=== PATIENT | male | born 1995 | race Caucasian/White ===

== ENCOUNTER 2016-06-20 10:55 | Emergency (ER) | payer MEDICAID ==
[2016-06-20 11:00] VITALS: RESP 16; TEMP 97.7
--- NOTE | 2016-06-20 12:08 | EDPHY ---
H & P Time Seen by Provider: 06/20/16 10:58 HPI/ROS: CHIEF COMPLAINT: left armpit pain HISTORY OF PRESENT ILLNESS: 21-year-old otherwise healthy male presents to the emergency department with an abscess to his left axilla. Patient reports he 1st noted this 2 days ago and has progressively gotten worse. No fevers or chills, no numbness or tingling in his arm. He denies other complaints. Patient is not immunocompromised. Smoking Status: Former smoker Physical Exam: GEN: Awake, alert, oriented, no acute distress RESP: nl resp effort MSK: Normal appearing SKIN: 2 cm x 2 cm area to left axilla of raised, erythematous, fluctuance with pustule head in center Constitutional: Initial Vital Signs Temperature (C) 36.5 C 06/20/16 10:58 Heart Rate 59 L 06/20/16 10:58 Respiratory Rate 16 06/20/16 10:58 Blood Pressure 115/59 L 06/20/16 10:58 O2 Sat (%) 97 06/20/16 10:58 O2 Delivery Mode Room Air Allergies/Adverse Reactions: No Known Allergies Allergy (Verified 06/20/16 10:57) Home Medications: Medication Instructions Recorded Hydrocodone/APAP 5/325 [Donie 1 tab PO Q4H PRN #7 tab 06/20/16 5/325] MDM/Departure - MDM Procedures: Procedure: Incision and Drainage abscess. The patient's abscess was located on the left axilla. Risks, benefits, alternatives discussed with the patient and consent obtained. The area was prepped and draped in sterile fashion. The patient received local anesthesia with 1% lidocaine with epinephrine. The abscess was incised with a #11 blade and purulent drainage was expressed. The patient tolerated the procedure well. The procedure was performed by myself. - Depart Disposition: Home, Routine, Self-Care Clinical Impression: Abscess of left axilla Condition: Good Instructions: Incision and Drainage (ED) Additional Instructions: Warm compresses to your left axilla 5 times a day for 5 minutes. Return to the emergency department for worsening symptoms. Take 600 mg of ibuprofen every 8 hours with food for 3-5 days, take Donie for severe pain. Prescriptions: Hydrocodone/APAP 5/325 [Donie 5/325] 1 tab PO Q4H PRN #7 tab PRN Reason: Pain, Moderate
[2016-06-20] MEDS ORDERED: IBUPROFEN 600 MG TAB PO ONE (12:17)
[2016-06-20 12:20] VITALS: BP 119/60; PULSE 75; O2SAT 95
== END 2016-06-20 12:20 | disposition home or self-care (01) ==
PROC: 0J9F0ZZ Drainage of Left Upper Arm Subcutaneous Tissue and Fascia, Open Approach (ICD-10-PCS; principal; 2016-06-20)
DX: L02.412 Cutaneous abscess of left axilla (principal); Z87.891 Personal history of nicotine dependence

== ENCOUNTER 2017-01-28 09:13 | Emergency (ER) | payer SELFPAY ==
[2017-01-28 09:22] VITALS: TEMP 98.1; O2SAT 98
[2017-01-28] MEDS ORDERED: predniSONE 20 MG TAB PO ONE (11:03)
[2017-01-28] MEDS ORDERED: diphenhydrAMINE 25 MG CAP PO ONE (11:03)
[2017-01-28] MEDS ORDERED: AMOXICILLIN/CLAVULANATE POT 875/125 MG TAB PO ONE (11:04)
--- NOTE | 2017-01-28 11:12 | EDPHY ---
H & P Smoking Status: Former smoker Time Seen by Provider: 01/28/17 11:05 HPI/ROS: HPI: This is a 21-year-old male who presents with Chief Complaint: Rash Location: Arms torso groin neck Quality: Rash Duration: 1-2 days Signs and Symptoms: + pruritus, no fever, no sore throat, no oral lesions, no petechiae, no nausea vomiting, no neck stiffness, + mild redness, no discharge Timing: Sudden Severity: [id number] Context: Patient was incarcerated 3 days ago and spent the night in [facility]. The next day he woke up with a rash between his fingers and in his groin that has spread up his arms and onto his torso. Yesterday he noted some mild redness and puffiness around his right eye. Denies any visual changes/ocular pain/ ocular discharge. Modifying Factors: Has not tried any [id number] medications Comment: ROS: Constitutional: No fever, no chills, no weight loss Eyes: No blurred vision Respiratory: No shortness of breath, no cough Cardiovascular: No chest pain Gastrointestinal: No nausea, no vomiting no diarrhea Genitourinary: No dysuria Extremities: No myalgias Neurologic: No weakness, no numbness Skin: No rashes Hematologic: No bruising, no bleeding MEDICAL/SURGICAL HISTORY: Generally healthy. Denies any surgical history. (Ally Woo) Social History: Was incarcerated. Is scheduled to be at his employer today at 2:00 p.m. (Ally Woo) Physical Exam: CONSTITUTIONAL: Well-appearing adult white male, for personal hygiene, awake and alert, no obvious distress HEENT: Atraumatic and normocephalic, mild right periorbital inflammation and mild redness. No stye. Conjunctiva clear. PERRL, EOMI. Tympanic membranes clear. Oropharynx clear, no exudate and moist pink mucosa. Airway patent. No lymphadenopathy. No meningismus. Cardiovascular: Normal S1/S2, regular rate, regular rhythm, without murmur rub or gallop. PULMONARY/CHEST: Symmetrical and nontender. Clear to auscultation bilaterally Good air movement. No accessory muscle usage. ABDOMEN: Soft, nondistended, nontender, no rebound, no guarding, no peritoneal signs, no masses or organomegaly. No CVAT. EXTREMITIES: 2/2 pulses, no deformities, no clubbing, no cyanosis or edema. NEUROLOGICAL: no focal neuro deficits. GCS 15. SKIN: Warm and dry, raised pinpoint macular lesions linear pattern in between the finger webs of both hands; bilateral wrists; bilateral antecubital fossa does; the latter axilla; neck crease; torso; right groin noted. Good capillary refill. (Ally Woo) Constitutional: Initial Vital Signs Temperature (C) 36.7 C 01/28/17 09:20 Heart Rate 88 01/28/17 09:20 Respiratory Rate 16 01/28/17 09:20 Blood Pressure 112/76 01/28/17 09:20 O2 Sat (%) 98 01/28/17 09:20 O2 Delivery Mode Room Air Allergies/Adverse Reactions: No Known Allergies Allergy (Verified 01/28/17 09:19) Home Medications: Medication Instructions Recorded Amoxicillin/Clavulanate Pot 875 mg PO BID #14 tab 01/28/17 [Augmentin 875 MG TAB (*)] Permethrin 5% [Elimite 5%] 60 gm TP ONCE #60 cream 01/28/17 predniSONE [predniSONE TAPER] 10 mg PO DAILY #21 ea 01/28/17 Medical Decision Making ED Course/Re-evaluation: Oral medications given; Augmentin, Benadryl, prednisone Will treat scabies as well as early periorbital cellulitis No signs of systemic infection. (Ally Woo) The patient was evaluated and managed by the physician primary teaching assistant. I have reviewed this chart and I agree with the findings and plan of care as documented , as indicated by my signature. I am the secondary supervising physician. ( Maura Avila) Differential Diagnosis: Differential includes but is not limited to scabies, bedbugs, impetigo, atopic dermatitis, dermatitis herpetiformis, abscess. (Ally Woo) - Data Points Medications Given: Discontinued Medications Amoxicillin/Clavulanate Potassium (Augmentin 875mg) 875 mg PO EDNOW ONE PRN Reason: Protocol Stop: 01/28/17 11:05 Last Admin: 01/28/17 11:12 Dose: 875 mg Diphenhydramine HCl (Benadryl) 50 mg PO EDNOW ONE Stop: 01/28/17 11:04 Last Admin: 01/28/17 11:11 Dose: 50 mg Prednisone (Prednisone) 60 mg PO EDNOW ONE Stop: 01/28/17 11:04 Last Admin: 01/28/17 11:12 Dose: 60 mg Departure - Departure Disposition: Home, Routine, Self-Care Clinical Impression: Periorbital cellulitis of right eye, Scabies, History of incarceration Condition: Good Instructions: Scabies (ED), Periorbital Cellulitis in Adults (ED) Additional Instructions: TAKE ALL MEDICATIONS PRESCRIBED. Your contaminated for the next 24-48 hours. Wash all bedding, linens, and clothes in hot water Referrals: NONE *PRIMARY CARE P,. [Primary Care Provider] - As per Instructions [facility],. [Clinic] - 5-7 days, if not improved Stand Alone Forms: Work Excuse Prescriptions: Amoxicillin/Clavulanate Pot [Augmentin 875 MG TAB (*)] 875 mg PO BID #14 tab Permethrin 5% [Elimite 5%] 60 gm TP ONCE #60 cream predniSONE [predniSONE TAPER] 10 mg PO DAILY #21 ea
[2017-01-28 11:27] VITALS: BP 116/73; PULSE 78; RESP 15
== END 2017-01-28 11:26 | disposition home or self-care (01) ==
DX: L03.213 Periorbital cellulitis (principal); B86 Scabies; Z87.891 Personal history of nicotine dependence

== ENCOUNTER 2018-03-21 16:20 | Emergency (ER) | payer SELFPAY ==
[2018-03-21 16:33] VITALS: BP 117/62
[2018-03-21] MEDS ORDERED: LORazepam 0.5 MG TAB PO ONE (16:40)
[2018-03-21] MEDS ORDERED: AZITHROMYCIN 250 MG TAB PO ONE (16:42)
--- NOTE | 2018-03-21 16:43 | EDPHY ---
H & P Stated Complaint: dysuria Source: Patient Exam Limitations: No limitations - Personal History Current Tetanus/Diphtheria Vaccine: Unsure Current Tetanus Diphtheria and Acellular Pertussis (TDAP): Unsure Tetanus Vaccine Date: < 10 years - Medical/Surgical History Hx Asthma: No Hx Chronic Respiratory Disease: No Hx Diabetes: No Hx Cardiac Disease: No Hx Renal Disease: No Hx Cirrhosis: No Hx Alcoholism: No Hx HIV/AIDS: No Hx Splenectomy or Spleen Trauma: No Other PMH: right wrist surgery, - Social History Smoking Status: Current every day smoker Time Seen by Provider: 03/21/18 16:39 HPI/ROS: HPI: This is a 22-year-old male who presents with Chief Complaint: Penile discharge and burning with urination Location: Quality: Dysuria and discharge Duration: Several days Signs and Symptoms: no fever, no nausea, no vomiting, no hematemesis, no blood in stool, no abdominal bloating, no diarrhea, no back pain, no urinary symptoms , no testicular/groin pain, no indigestion, no chest pain, no shortness of breath Timing: Sudden onset Severity: Mild Context: Patient reports that he had unprotected sexual intercourse approximately 7-10 days ago, presents with several day history of burning with urination and greenish yellow penile discharge. He denies any testicular or groin swelling or pain. Eating and drinking normally. Denies fever, back pain , blood in urine, penile lesions or sores. Modifying Factors: None Comment: ROS: A comprehensive 10 system review of systems is otherwise negative aside from elements mentioned in the history of present illness. MEDICAL/SURGICAL/SOCIAL HISTORY: Medical history: Generally healthy. Does not take any regular medications. Surgical history: Right wrist surgery Social history: Smoker. Family history noncontributory. CONSTITUTIONAL: Slightly anxious young adult white male, awake and alert, no obvious distress HEENT: Atraumatic and normocephalic, PERRL, EOMI. Nares patent; no rhinorrhea; no nasal mucosal edema. Tympanic membranes clear. Oropharynx clear, no exudate and moist pink mucosa. Airway patent. No lymphadenopathy. No meningismus. Cardiovascular: Normal S1/S2, regular rate, regular rhythm, without murmur rub or gallop. PULMONARY/CHEST: Symmetrical and nontender. Clear to auscultation bilaterally. Good air movement. No accessory muscle usage. ABDOMEN: Soft, nondistended, nontender, no rebound, no guarding, no peritoneal signs, no masses or organomegaly. No CVAT. Male : circumcised penis, bilateral descended testes, no testicular swelling, no testicular masses, + yellowish penile discharge, no lesions, negative Prehn' s sign. EXTREMITIES: 2/2 pulses, strength 5/5, no deformities, no clubbing, no cyanosis or edema. NEUROLOGICAL: no focal neuro deficits. GCS 15. SKIN: Warm and dry, no erythema. no rash. Good capillary refill. (Ally Woo) Constitutional: Initial Vital Signs Temperature (C) 37 C 03/21/18 16:30 Heart Rate 70 03/21/18 16:30 Respiratory Rate 16 03/21/18 16:30 Blood Pressure 117/62 03/21/18 16:30 O2 Sat (%) 96 03/21/18 16:30 O2 Delivery Mode Room Air Allergies/Adverse Reactions: No Known Allergies Allergy (Verified 03/21/18 16:30) Medical Decision Making ED Course/Re-evaluation: Urinalysis and urine GC ordered No testicular pain or swelling and I do not believe that patient has testicular torsion and needs testicular ultrasound No lesions to indicate herpes. No signs of Gisela's gangrene. Urinalysis does not show any Trichomonas. Given IM Rocephin 250 mg and p.o. Azithromycin 1 gram for GC prophylaxis This patient was seen under the supervision of my secondary supervising physician. I evaluated care for this patient independently. Discussed this patient with Dr. Gordon. (Ally Woo) Differential Diagnosis: Differential diagnosis includes but is not limited to gonorrhea, chlamydia, Trichomonas, herpes, epididymitis, orchitis. (Ally Woo) - Data Points Medications Given: Discontinued Medications Azithromycin (Zithromax) 1,000 mg PO EDNOW ONE PRN Reason: Protocol Stop: 03/21/18 16:43 Last Admin: 03/21/18 16:57 Dose: 1,000 mg Ceftriaxone Sodium (Rocephin Im Syringe) 250 mg IM EDNOW ONE PRN Reason: Protocol Stop: 03/21/18 16:43 Last Admin: 03/21/18 17:09 Dose: 250 mg Ibuprofen (Motrin) 600 mg PO EDNOW ONE Stop: 03/21/18 17:12 Last Admin: 03/21/18 17:28 Dose: 600 mg Departure - Departure Disposition: Home, Routine, Self-Care Clinical Impression: Encounter for assessment of sexually transmitted disease exposure Condition: Good Instructions: Sexually Transmitted Diseases (ED) Additional Instructions: Please refrain from sexual intercourse x 7 days. You are prophylactically being treated for gonorrhea and chlamydia. If the results are positive, you will receive a phone call from the emergency room in the next 2-3 days. Please follow safe sex practices. [facility]. Referrals: [facility],. [Clinic] - As per Instructions
[2018-03-21] MEDS ORDERED: IBUPROFEN 600 MG TAB PO ONE (17:11)
[2018-03-22 11:35] LABS: GC AMPLIFICATION GENPROBE POSITIVE (NEGATIVE)
== END 2018-03-21 17:30 | disposition home or self-care (01) ==
DX: R30.0 Dysuria (principal); R36.0 Urethral discharge without blood
CPT/HCPCS: J0696

== ENCOUNTER 2018-07-30 10:35 | Emergency (ER) | payer OTHER, MEDICAID | END 2018-07-30 12:32 | disposition home or self-care (01) ==